=== PATIENT | male | born 1940 | race Caucasian/White ===

== ENCOUNTER → 2020-10-02 | Outpatient (CLI) | payer OTHER ==
[2020-10-04 15:45] LABS: CORONAVIRUS (COVID19) CSH-NRL Negative (Negative)
== END ==
LOC: LAB SHORT 19:03
PROVIDERS: Family Medicine
DX: Z02.9 Encounter for administrative examinations, unspecified (principal); Z20.828 Contact with and (suspected) exposure to other viral communicable diseases
CPT/HCPCS: U0003

== ENCOUNTER 2022-11-06 16:06 | Emergency (ER) | payer OTHER ==
[~2022-11-06] VITALS: Ht 190.5 cm; Wt 73.5 kg
[2022-11-06] MEDS ORDERED: MIDO5 PO (16:12)
[2022-11-06] MEDS ORDERED: MULVITA PO (16:22)
[2022-11-06] MEDS ORDERED: DOCU100 PO (16:22)
[2022-11-06] MEDS ORDERED: MASOPHEN325 M3 PO (16:23)
[2022-11-06] MEDS ORDERED: NAPR220 PO (16:23)
[2022-11-06 16:28] LABS: BASOPHILS ABSOLUTE AUTO 0.06 K/mm3 (0.00-0.23); BASOPHILS PERCENT AUTO 0 % (0-2); EOSINOPHILS ABSOLUTE AUTO 0.36 K/mm3 (0.00-0.68); EOSINOPHILS PERCENT AUTO 3 % (0-6); Hematocrit 40.9 % (37.0-53.0); Hemoglobin 13.6 g/dL (13.5-17.5); IMMATURE GRAN ABSOLUTE AUTO 0.13 K/mm3 (0.00-0.10); IMMATURE GRAN PERCENT AUTO 1 % (0-1); LYMPHOCYTES ABSOLUTE AUTO 1.65 K/mm3 (0.84-5.20); LYMPHOCYTES PERCENT AUTO 12 % (21-46); MONOCYTES ABSOLUTE AUTO 0.95 K/mm3 (0.16-1.47); MONOCYTES PERCENT AUTO 7 % (4-13); Mean Corpuscular HGB 32.9 pg (26.0-34.0); Mean Corpuscular HGB Conc 33.3 g/dL (31.5-36.5); Mean Corpuscular Volume 99 fL (80-100); Mean Platelet Volume 10.1 fL (9.1-12.4); NEUTROPHILS ABSOLUTE AUTO 10.34 K/mm3 (1.96-9.15); NEUTROPHILS PERCENT AUTO 77 % (41-73); Platelet Count 357 K/mm3 (150-400); RDW Coefficient Variation 13.1 % (11.7-14.2); RDW Standard Deviation 47.8 fL (35.1-46.3); Red Blood Cell Count 4.14 M/mm3 (4.30-5.90); White Blood Cell Count 13.49 K/mm3 (4.00-11.30)
[2022-11-06 16:50] LABS: Albumin, Blood 3.7 g/dL (3.4-5.0); Albumin/Globulin Ratio 0.9 (0.8-1.8); Bilirubin, Total 0.6 mg/dL (0.1-1.0); Bun/Creatinine Ratio 19.5 (12.0-20.0); Calcium, Blood 9.3 mg/dL (8.5-10.1); Creatinine, Blood 1.23 mg/dL (0.60-1.20); Globulin, Blood 3.9 g/dL (2.2-4.0); Potassium, Blood 4.4 mmol/L (3.5-5.5); Total Protein, Blood 7.6 g/dL (6.4-8.2)
[2022-11-06 18:25] LABS: Source, Urine Clean Catch
[2022-11-06 18:30] LABS: Appearance, Urine Clear (Clear); Bilirubin, Urine Neg (Neg); Blood, Urine Neg (Neg); Color, Urine Yellow (P-Yellow); Glucose Qualitative, Urine Neg (Neg); Ketones, Urine Neg (Neg); Leukocyte Esterase, Urine Neg (Neg); Nitrite, Urine Neg (Neg); Protein, Urine Neg (Neg); Urobilinogen, Urine NORM (Normal)
== END 2022-11-06 20:05 | disposition home or self-care (01) ==
LOC: ER 16:06
PROVIDERS: Emergency Medicine
DX: R55 Syncope and collapse (principal); S39.012A Strain of muscle, fascia and tendon of lower back, initial encounter; S09.90XA Unspecified injury of head, initial encounter; W18.30XA Fall on same level, unspecified, initial encounter; Z79.899 Other long term (current) drug therapy
CPT/HCPCS: 70450; 71045; 80053; 81003; 84484; 85025; 93005; 93010; 99285-25; A9270

== ENCOUNTER 2023-01-23 15:37 | Emergency (ER) | payer OTHER ==
[~2023-01-23] VITALS: Ht 195.6 cm; Wt 72.6 kg
[~2023-01-23 15:37] MED LIST: DOCU100 PO; MASOPHEN325 M3 PO; MIDO5 PO; MULVITA PO; NAPR220 PO
[2023-01-23 15:49] VITALS: BP 168/64
== END 2023-01-23 18:55 | disposition home or self-care (01) ==
LOC: ER 15:37
DX: R07.81 Pleurodynia (principal); Z79.899 Other long term (current) drug therapy
CPT/HCPCS: 36415; 71101; 96374; 99283-25; A9270; J1885

== ENCOUNTER 2024-04-16 18:36 | Observation (INO) | payer OTHER ==
[~2024-04-16] VITALS: Ht 188 cm; Wt 66.5 kg
[2024-04-16 19:43] LABS: BASOPHILS PERCENT AUTO 1 % (0-2); EOSINOPHILS ABSOLUTE AUTO 0.03 K/mm3 (0.00-0.68); EOSINOPHILS PERCENT AUTO 0 % (0-6); Hematocrit 36.8 % (37.0-53.0); Hemoglobin 11.9 g/dL (13.5-17.5); IMMATURE GRAN ABSOLUTE AUTO 0.25 K/mm3 (0.00-0.10); IMMATURE GRAN PERCENT AUTO 2 % (0-1); LYMPHOCYTES ABSOLUTE AUTO 2.34 K/mm3 (0.84-5.20); LYMPHOCYTES PERCENT AUTO 14 % (21-46); MONOCYTES ABSOLUTE AUTO 1.43 K/mm3 (0.16-1.47); MONOCYTES PERCENT AUTO 9 % (4-13); Mean Corpuscular HGB 32.4 pg (26.0-34.0); Mean Corpuscular HGB Conc 32.3 g/dL (31.5-36.5); Mean Corpuscular Volume 100 fL (80-100); Mean Platelet Volume 9.1 fL (9.1-12.4); NEUTROPHILS ABSOLUTE AUTO 12.47 K/mm3 (1.96-9.15); NEUTROPHILS PERCENT AUTO 75 % (41-73); Platelet Count 689 K/mm3 (150-400); RDW Coefficient Variation 14.2 % (11.7-14.2); Red Blood Cell Count 3.67 M/mm3 (4.30-5.90); White Blood Cell Count 16.62 K/mm3 (4.00-11.30)
[2024-04-16 20:14] LABS: Bun/Creatinine Ratio 39.1 (12.0-20.0); C-REACTIVE PROTEIN, EXT RANGE 3.4 mg/dL (0.000-0.300); Calcium, Blood 8.8 mg/dL (8.5-10.1); Creatinine, Blood 0.72 mg/dL (0.60-1.20); Potassium, Blood 3.9 mmol/L (3.5-5.5)
[2024-04-16 23:50] LABS: Source, Urine Straight Cath
[2024-04-17] VITALS (28 sets, daily range): BP systolic 92–127; BP diastolic 38–67
[2024-04-17] LABS: Bilirubin, Urine Neg (Neg); Blood, Urine 2+ (Neg); Glucose Qualitative, Urine Neg (Neg); Ketones, Urine Neg (Neg); Leukocyte Esterase, Urine 3+ (Neg); Nitrite, Urine Pos (Neg); Protein, Urine 1+ (Neg); Specific Gravity, Urine 1.015 (1.003-1.022); Urobilinogen, Urine NORM (Normal)
[2024-04-17 00:23] LABS: Appearance, Urine Hazy (Clear); Color, Urine Pale Yellow (P-Yellow)
[2024-04-17 00:24] LABS: Bacteria Many /hpf; Red Blood Cells, Urine 0-2 /hpf (0-2); Squamous Epithelial Cells Few /hpf (Few); White Blood Cells, Urine 50-100 /hpf (0-5)
[2024-04-17] MEDS ORDERED: Acetaminophen 325 MG TABLET PO PRN (02:25)
[2024-04-17] MEDS ORDERED: FentaNYL Citrate 50 MCG/ML 2 ML Injection IV PRN (02:25)
[2024-04-17] MEDS ORDERED: NS 1,000 ML IV ONE ×2 (02:25→10:25)
[2024-04-17] MEDS ORDERED: Ondansetron HCl 2 MG / ML 2ML Vial IV PRN (02:25)
[2024-04-17] MEDS ORDERED: NS 1,000 ML IV SCH ×2 (02:35→13:05)
[2024-04-17] MEDS ORDERED: Piperacillin/Tazobactam Sod 3.375 GM in NS 100 ML IV ONE (02:35)
[2024-04-17] MEDS ORDERED: Vancomycin HCL 1,000 MG in NS 250 ML IV ONE (02:35)
[2024-04-17] MEDS ORDERED: LORazepam 2 MG/ML 1ML Injection IV ONE (04:00)
[2024-04-17 04:51] LABS: International Normalized Ratio 1.04; Prothrombin Time Results 11.1 Sec (9.7-11.5)
[2024-04-17 05:00] LABS: Albumin, Blood 2.4 g/dL (3.4-5.0); Albumin/Globulin Ratio 0.6 (0.8-1.8); Bilirubin, Total 0.6 mg/dL (0.1-1.0); Bun/Creatinine Ratio 33.9 (12.0-20.0); Calcium, Blood 7.7 mg/dL (8.5-10.1); Creatinine, Blood 0.68 mg/dL (0.60-1.20); Globulin, Blood 3.8 g/dL (2.2-4.0); Potassium, Blood 3.5 mmol/L (3.5-5.5); Total Protein, Blood 6.2 g/dL (6.4-8.2)
[2024-04-17] MEDS ORDERED: Metoprolol Tartrate 1 MG/ML 5 ML VIAL IV ONE (05:00)
[2024-04-17] MEDS ORDERED: Vancomycin HCL 750 MG in NS 250 ML IV ONE (05:50)
[2024-04-17 06:20] LABS: BASOPHILS ABSOLUTE AUTO 0.06 K/mm3 (0.00-0.23); BASOPHILS PERCENT AUTO 0 % (0-2); EOSINOPHILS PERCENT AUTO 0 % (0-6); Hematocrit 32.6 % (37.0-53.0); Hemoglobin 10.6 g/dL (13.5-17.5); IMMATURE GRAN ABSOLUTE AUTO 0.29 K/mm3 (0.00-0.10); IMMATURE GRAN PERCENT AUTO 1 % (0-1); LYMPHOCYTES PERCENT AUTO 1 % (21-46); MONOCYTES ABSOLUTE AUTO 0.23 K/mm3 (0.16-1.47); MONOCYTES PERCENT AUTO 1 % (4-13); Mean Corpuscular HGB Conc 32.5 g/dL (31.5-36.5); Mean Corpuscular Volume 99 fL (80-100); Mean Platelet Volume 9.2 fL (9.1-12.4); NEUTROPHILS ABSOLUTE AUTO 22.01 K/mm3 (1.96-9.15); NEUTROPHILS PERCENT AUTO 96 % (41-73); Platelet Count 478 K/mm3 (150-400); RDW Coefficient Variation 14.2 % (11.7-14.2); Red Blood Cell Count 3.31 M/mm3 (4.30-5.90); White Blood Cell Count 22.89 K/mm3 (4.00-11.30)
[2024-04-17] MEDS ORDERED: Piperacillin/Tazobactam Sod 4.5 GM in NS 100 ML IV SCH (08:00)
[2024-04-17] MEDS ORDERED: OXYTROL1 EACH TOP (08:04)
[2024-04-17] MEDS ORDERED: Robaxin750 MG PO (08:07)
[2024-04-17] MEDS ORDERED: OXYC5 PO (08:09)
[2024-04-17] MEDS ORDERED: Calcium Carbon500 MG PO (08:10)
[2024-04-17] MEDS ORDERED: Midodrine 5 MG Tab PO SCH (08:30)
--- NOTE | 2024-04-17 09:26 | NUR ---
THIS RN RECIEVED REPORT FROM ER NURSE AT 9813.
--- NOTE | 2024-04-17 09:48 | NUR ---
ARRIVAL TO UNIT PT ARRIVED TO PCU AT 0933 VIA GURNEY AND ON 2L NC. PT ARRIVED WITH A EYE COVERING FOR SLEEP AND WAKES BRIEFLY WHEN ASKED QUESTIOINS. PT HESISTANT TO ANSWER QUESTIONS BUT WILL ANSWER EVENTUALLY APPROPIATELY. PT ENDORSED PAIN OF HIS LEFT HIP WHEN BEING SLID FROM RNEY TO PCU BED VIA SLIDE SHEET AND 4 STAFF MEMBERS.PT HAS A REDDENED AREA ON HIS MID BACK BUT REST OF SKIN APPEARED INTACT. NO REPORT OF CHEST PAIN/PRESSURE OR REPORT OF SOB.
[2024-04-17] MEDS ORDERED: MIRALAX17 GM PO (10:49)
[2024-04-17] MEDS ORDERED: FAMO20 PO (10:51)
[2024-04-17] MEDS ORDERED: Flonase 0.05% N16 GM (10:52)
[2024-04-17] MEDS ORDERED: REFRESH RELIEVA10 M4 BOTHEYES (10:53)
[2024-04-17] MEDS ORDERED: SENN187 PO (10:54)
[2024-04-17] MEDS ORDERED: LIDO700A20 TOP (10:55)
--- NOTE | 2024-04-17 14:46 | NUR ---
PT DOWN TO IMAGING FOR HIDASCAN AT ROUGHLY 1100. THIS RN WAS LOOKING THROUGH PT'S CHART LOOKING FOR MENTION OF ADDTIONAL IMAGING, NONE FOUND. THIS RN ASKED ABLE BODIED SEAMAN IF SHE WAS AWARE OF ANY MENTION OF HIDASCAN, ABLE BODIED SEAMAN LOOKED THROUGH ER NOTES, NONE FOUND. THIS RN MENTIONED THAT PT DID NOT HAVE AN ORDER FOR HIDASCAN. [facility] CONTACTED IMAGING AND NOTIFIED THEM THAT PT DID NOT HAVE AN ORDER FOR HIDASCAN AND THE THE ORDER WAS FOR A DIFFERENT PT THAT WAS IN ED WITH THE SAME LAST NAME. HIDASCAN TERMINATED [facility] THROUGH. NOTIFIED.
[2024-04-17] MEDS ORDERED: NS 250 ML IV ONE (15:11)
[2024-04-17] MEDS ORDERED: NS 100 ML IV ONE (15:11)
[2024-04-17] MEDS ORDERED: Albumin (Human) 12.5gm/250ml 500 ML IV ONE (15:12)
[2024-04-17] MEDS ORDERED: EpiNEPhrine 1 MG/1 ML 1ML Vial ONE (15:15)
[2024-04-17] MEDS ORDERED: Rocuronium Bromide 10 MG/ML 5ML Injection IV ONE (15:21)
[2024-04-17] MEDS ORDERED: propofoL 20 ML IV ONE (15:30)
[2024-04-17] MEDS ORDERED: Lidocaine HCl 2% 20 ML MDV ONE (15:32)
[2024-04-17] MEDS ORDERED: Ondansetron HCl 2 MG / ML 2ML Vial ONE (15:34)
[2024-04-17] MEDS ORDERED: Dexamethasone Sod Phos 10 MG/ML 1ML VIAL ONE (15:34)
--- NOTE | 2024-04-17 16:32 | NUR ---
TRANSFER UPDATE REPORT GIVEN TO MECHANICAL DESIGN ENGINEER FACILITIES , ADIN, AT 1620. PT RECIEVING PG ROOSEVELT DURING REPORT AND PLANNING ON GOING TO SURGERY. PT CURRENTLY ON RA WITH SATS IN THE 'S. PT MORE ALERT WHILE PROJECT ENGINEERING DIRECTOR IS PLACING PG FOR LEVOPHED. PT UPDATED ON PLAN.
[2024-04-17] MEDS ORDERED: Phenylephrine HCl 100 MCG/ML-NS 10MLSYR (1MG/10ML) ONE (16:54)
--- NOTE | 2024-04-17 17:30 | NUR ---
04/17/24 8218 Aide Vences GAGNON CATH PLACED IN OR. ART LINE STARTED BY DR WILCOX TO LEFT WRIST.
[2024-04-17] MEDS ORDERED: FentaNYL Citrate 50 MCG/ML 2 ML Injection ONE (17:31)
[2024-04-17] MEDS ORDERED: Vancomycin HCL 750 MG in NS 250 ML IV SCH (18:00)
[2024-04-17] MEDS ORDERED: Sugammadex Sodium 200 MG/2ML SDV (100 MG/ML) ONE (18:05)
--- NOTE | 2024-04-17 18:55 | NUR ---
ASSUMPTION OF CARE PT ARRIVED TO ICU FROM OR ON ICU BED. PT ALERT, FOLLOWING COMMANDS, MOVING ALL EXTREMITIES. STRONG PULSE IN LLE c INTACT SENSATION. PT MAINLY C/O OF BEING COLD AND MODERATE LOWER BACK DISCOMFORT. INITIALLY ON NON-REBREATHER, TITRATED O2 DOWN TO 2LPM VIA NC c SATS >90%. BP STABLE, OFF PRESSORS. GAGNON CATH PATENT, DRAINING YELLOW URINE. WOUND VAC IN PLACE TO L HIP. REPORT GIVEN TO ONCOMING NURSE.
[2024-04-17 19:40] LABS: Color, Synovial Fluid Red (None-P Yel)
[2024-04-17 19:41] LABS: Appearance, Synovial Fluid Cloudy (Clear); BODY FLUID RBC 0.732 M/mm3 (0-0); RBC Count, Synovial Fluid 732000 /mm3 (0-0); WBC Count, Synovial Fluid 6555 /mm3 (0-180)
[2024-04-17 20:16] LABS: Lymphs, Synovial Fluid 7 % (0-15); Monocytes/Macrophages, Synovia 2 % (0-65); Neutrophils, Synovial Fluid 91 % (0-24)
--- NOTE | 2024-04-17 23:06 | NUR ---
ASSUMED CARE CARE WAS ASSUMED AT 1900. PT A/O X2-3. AT BEGINNING OF SHIFT PT ASKED WHERE HE WAS BUT HE WAS ABLE TO STATE AND WHAT YEAR IT IS. PT ABLE TO FOLLOW COMMANDS, MOVES ALL 4 EXTREMITIES. PT ENDORSES PAIN, MEDICATING PER EMAR AND REPOSITIONING. PT ON 2 L N/C AT START OF SHIFT, O2 SATS > 90%. CARDIAC MONITORING REFLECTS NSR, HR 80s. SBP 110s-120s. PG TO ROOSEVELT PATENT, PIV TO R HAND AND LFA SL. LEFT RADIAL ARTERIAL LINE, NO SIGNS OF HEMATOMA OR OOZING AT INSERTION SITE NOTED, ARM BOARD IN PLACE. WOUND VAC TO L HIP IN PLACE, SMALL AMOUNT OF SEROSANGUINOUS FLUID NOTED IN CANISTER. STRONG PEDAL PULSES BLE.
[2024-04-18] VITALS (36 sets, daily range): BP systolic 104–156; BP diastolic 41–92
[2024-04-18 04:31] LABS: BASOPHILS ABSOLUTE AUTO 0.07 K/mm3 (0.00-0.23); BASOPHILS PERCENT AUTO 1 % (0-2); EOSINOPHILS ABSOLUTE AUTO 0.11 K/mm3 (0.00-0.68); EOSINOPHILS PERCENT AUTO 1 % (0-6); Hematocrit 25.2 % (37.0-53.0); Hemoglobin 8.2 g/dL (13.5-17.5); IMMATURE GRAN ABSOLUTE AUTO 0.09 K/mm3 (0.00-0.10); IMMATURE GRAN PERCENT AUTO 1 % (0-1); LYMPHOCYTES ABSOLUTE AUTO 1.83 K/mm3 (0.84-5.20); LYMPHOCYTES PERCENT AUTO 12 % (21-46); MONOCYTES ABSOLUTE AUTO 1.21 K/mm3 (0.16-1.47); MONOCYTES PERCENT AUTO 8 % (4-13); Mean Corpuscular HGB 32.5 pg (26.0-34.0); Mean Corpuscular HGB Conc 32.5 g/dL (31.5-36.5); Mean Corpuscular Volume 100 fL (80-100); Mean Platelet Volume 9.3 fL (9.1-12.4); NEUTROPHILS ABSOLUTE AUTO 11.46 K/mm3 (1.96-9.15); NEUTROPHILS PERCENT AUTO 78 % (41-73); Platelet Count 389 K/mm3 (150-400); RDW Coefficient Variation 14.6 % (11.7-14.2); RDW Standard Deviation 53.2 fL (35.1-46.3); Red Blood Cell Count 2.52 M/mm3 (4.30-5.90); White Blood Cell Count 14.77 K/mm3 (4.00-11.30)
[2024-04-18 04:50] LABS: Bun/Creatinine Ratio 19.7 (12.0-20.0); Creatinine, Blood 0.87 mg/dL (0.60-1.20); Potassium, Blood 3.1 mmol/L (3.5-5.5)
--- NOTE | 2024-04-18 06:10 | NUR ---
SHIFT SUMMARY PT A/O x 3-4, ABLE TO ANSWER QUESTIONS APPROPRIATELY. PT T[place]-B[place]. PT MEDICATED FOR PAIN THIS SHIFT. PT ON RA, O2 SATS > 90%. CARDIAC MONITORING SHOWS PT'S HR 60s AT THIS TIME. SBP 120s. ARTERIAL LINE TO LEFT RADIAL ACCESS SITE TAKEN OUT THIS SHIFT, WHITE ARM BOARD REMAINS IN PLACE. NO OOZING OR HEMATOMA NOTED. NS INFUSING @ 100 mL/HR. WOUND VAC IN PLACE TO PT'S LEFT HIP INCISION SITE, SEROSANGUINOUS DRAINAGE NOTED. PEDAL PULSES REMAIN STRONG. NOTIFIED HOSPITALIST OF [facility], PT TO RECIEVE 40 mEq KCL THIS MORNING.
[2024-04-18] MEDS ORDERED: Potassium Chloride 40 MEQ in NS 250 ML IV ONE (06:30)
--- NOTE | 2024-04-18 10:40 | NUR ---
SHIFT ASSESSMENT PT A&OX4, FOLLOWING COMMANDS, [place]. VERY [place]. WEAKNESS TO LLE BUT STRONG PULSE, SENSATION INTACT. WOUND VAC TO L HIP DRAINING SS FLUID. KCL INFUSING. GAGNON CATH PATENT, DRAINING YELLOW URINE. NO BM. REMAINS NPO, WILL DISCUSS WITH HOSPITALIST. VSS. PT NOW SURGICAL STATUS, AWAITING ROOM.
--- NOTE | 2024-04-18 14:20 | NUR ---
PT TX TO [facility].
== END 2024-04-18 14:11 | disposition short-term general hospital (02) ==
LOC: ER 18:36 → ERHOLD 18:37 → ER 18:37 → ICUE 04-17 07:13 → PCU 04-17 07:13 → ER 04-17 07:13 → ERHOLD 04-17 07:13 → PCU 04-17 10:03 → ERHOLD 04-17 10:03 → ICUE 04-17 16:40 → PCU 04-17 16:40 → ICUE 04-17 16:40
PROVIDERS: Emergency Medicine; Orthopaedic Surgery; ADMIT Internal Medicine
PROC: 0SPB04Z Removal of Internal Fixation Device from Left Hip Joint, Open Approach (ICD-10-PCS; principal; 2024-04-17 15:00)
DX: T84.7XXA Infection and inflammatory reaction due to other internal orthopedic prosthetic devices, implants and grafts, initial encounter (principal); L02.31 Cutaneous abscess of buttock; N32.81 Overactive bladder; K62.89 Other specified diseases of anus and rectum; M86.9 Osteomyelitis, unspecified; J44.9 Chronic obstructive pulmonary disease, unspecified; I12.9 Hypertensive chronic kidney disease with stage 1 through stage 4 chronic kidney disease, or unspecified chronic kidney disease; N18.30 Chronic kidney disease, stage 3 unspecified; Y83.8 Other surgical procedures as the cause of abnormal reaction of the patient, or of later complication, without mention of misadventure at the time of the procedure
CPT/HCPCS: 36415; 51701; 71045; 73502; 73701; 80048; 80053; 81001; 83605; 83880; 85025; 85610; 86140; 87040; 87070; 87075; 87077; 87086; 87186; 87205; 89051; 93005; 93010; 94762; 96365; 96366; 96367; 96368; 96375; 96376; 99285-25; A9270; G0378; J0171; J1100; J2060; J2371; J2405; J2543; J2704; J3010; J3370; J3480; J7030; J7050; J7060; P9045; Q9967